=== PATIENT | female | born 1985 | race Caucasian/White ===

== ENCOUNTER 2017-06-08 03:00 | Inpatient (IN) | payer OTHER ==
[~2017-06-08] VITALS: Ht 165.1 cm; Wt 74.8 kg
--- NOTE | ~2017-06-08 | PN ---
Unit #: [id number] #: [id number] Patient: MARLIN FELIPE [id number] [facility] [address] [place] [address] [id number] MR#: [id number] NAME: MARLIN FELIPE. ROOM: P179 Age: 31 Sex: F Admission Date: 06/08/2017 : 1985 Attending Physician: Mellisa Lama M.D. Admitting Physician: Mellisa Lama M.D. Primary Care Physician: Primary Care Physician Evon GUTIERREZ NOTES DATE 06/10/2017 DISCUSSION Ms. Felipe is a 31-year-old white female who was seen today and chart was reviewed and case was discussed with the staff. She remains anxious, withdrawn and irritable and showing very negative insight into her situation, refusing to take responsibility for her presentation and her suicide attempt and just trying to mask and minimize her symptoms so she can get out of the hospital and does not appear to be very investing in treatment. MENTAL STATUS EXAMINATION Young white female who was casually dressed with fair personal hygiene, appears to be in no acute distress or discomfort. She was awake and alert on interaction with intact orientation. Her mood was anxious and depressed with congruent affect. Her speech was slow and restricted in content. She denies any suicidal or homicidal ideations. Her insight and judgement remains slightly impaired. TREATMENT PLAN The patient remains emotionally fragile at this time and has poor prognosis due to lack of insight into her situation and trying to actively mask and minimize her symptoms and we will encourage the patient to compliant with treatment recommendations and we will monitor her response and make further adjustments as needed. Dictated by... Shai Love/cordell TD: 06/10/2017 20:49 JOB #: [id number] Unit #: [id number] #: [id number] Patient: MARLIN FELIPE SOILA GUTIERREZ NOTES Page 1 of 1 X Mellisa Lama MD PROGRESS NOTE
--- NOTE | ~2017-06-08 | PA ---
Unit #: [id number] #: [id number] Patient: MARLIN RICO [id number] [facility] [address] [place] [address] [id number] I MR#: [id number] NAME: MARLIN RICO. ROOM: P179 Age: 31 Sex: F Admission Date: 06/08/2017 : 1985 Date of Assessment: Attending Physician: Mellisa Lama M.D. Admitting Physician: Mellisa Lama M.D. Primary Care Physician: Primary Care Physician No PSYCHIATRIC ASSESSMENT DATE OF SERVICE 06/08/2017. IDENTIFYING DATA Ms. Haywood is a 31-year-old white female, who is a resident of [place], [place], and was transferred to us from [facility] on a voluntary basis. CHIEF COMPLAINT "I've been depressed for a long time now." HISTORY OF PRESENT ILLNESS Ms. Haywood is a 31-year-old white female with history of mood disorder, who was self-referred to the hospital stating that she has been depressed for a long time and 2 days ago, she found out that her was cheating on her with another woman and she had a breakdown and she took about 8 Tylenol and she is tired of feeling this way and reports having thoughts of suicide via overdose, and reports that there is CPS involvement and she has three more weeks to get herself together so she can get her kids back. The patient reports that she and her were supposed to be working together to get jobs and get off the drugs, so they could regain custody of the children and she reports that she feels like she is the only one trying and she is tired of feeling like this and she feels like she is working hard and not getting anywhere and it is a constant struggle. The patient reports daily use of methamphetamine, 20 dollars worth via IV route and reports recent use of alcohol, half a pint of whiskey on 06/07/2017 and does report increasing depression, anxiety, irritability, restlessness, feelings of hopelessness and helplessness, and suicidal ideations and as such, a recommendation for inpatient level of care for safety and stabilization was made and the patient was stepped up to the inpatient unit. SUBSTANCE ABUSE HISTORY The patient reports extensive history of substance abuse and dependence including alcohol, cannabis, cocaine, opioids, and amphetamines, and currently, methamphetamine has been her drug of choice. PAST PSYCHIATRIC HISTORY The patient has not had any prior inpatient or outpatient psychiatric treatment. Review of the medical records indicate currently she is not active in any treatment program and is not seeing a psychiatrist and is not taking any psychotropic medications. Unit #: [id number] #: [id number] Patient: MARLIN RICO PAST MEDICAL HISTORY No acute or chronic medical illnesses. ALLERGIES No known medication allergies. CURRENT MEDICATIONS None. PERSONAL AND SOCIAL HISTORY A 31-year-old white female, who reports that she is and lives at home with her mother as she is from her and her children are in CPS custody. MENTAL STATUS EXAMINATION Young white female, who was casually dressed with fair personal hygiene, appears to be in no acute distress or discomfort. She was awake and alert on interaction with intact orientation to time, place, and person. Her mood was anxious and depressed with a congruent affect. Her speech was slow and restricted in content. Her thought processes were disorganized with some looseness of associations and flight of ideas and suicidal ideations. Her insight and judgment remain significantly impaired. DIAGNOSTIC IMPRESSION Psychiatric: Major depressive disorder, recurrent, moderate, without psychotic features; methamphetamine dependence, moderate; and alcohol dependence, moderate. Medical: None. Stressors: Mild psychosocial stressors. TREATMENT PLAN 1. The patient has presented with a history of substance abuse and mood disorder and has been decompensating and will need inpatient hospitalization for safety and stabilization. We will start her back on her home medications. We will adjust the medications and monitor response. 2. Supportive therapy was provided to the patient. 3. Safe, structured, and nourishing environment will be provided. ESTIMATED LENGTH OF STAY 4 to 5 days. ABILITY TO HELP SELF Limited. WILLINGNESS TO HELP SELF The patient appears to be willing to help self. STRENGTHS 1. Communicative. 2. Cooperative. PROBLEMS 1. Chronic dysphoric symptoms. 2. Chronic chemical dependency. 3. Poor social support system. DISCHARGE CRITERIA This will be contingent upon the patient's ability to go through detox without having any significant withdrawal symptoms as well as her ability Unit #: [id number] #: [id number] Patient: MARLIN RICO to stay safe to herself, particularly after discharge from the hospital. Dictated by... Shai Love/jose TD: 06/09/2017 15:47 JOB #: [id number] PSYCHIATRIC ASSESSMENT Page 1 of 1 X Mellisa Lama MD PSYCHIATRIC ASSESSMENT
--- NOTE | ~2017-06-08 | PN ---
Unit #: [id number] #: [id number] Patient: MARLIN FELIPE [id number] [facility] [address] [place] [address] [id number] MR#: [id number] NAME: MARLIN FELIPE. ROOM: P179 Age: 31 Sex: F Admission Date: 06/08/2017 : 1985 Attending Physician: Mellisa Lama M.D. Admitting Physician: Mellisa Lama M.D. Primary Care Physician: Primary Care Physician Evon CM PROGRESS NOTES DATE OF SERVICE: 06/09/2017 SUBJECTIVE Ms. Felipe is a 31-year-old white female, who was seen today and chart was reviewed. Case was discussed with the staff. She has been anxious, withdrawn, depressed, and rather seclusive to herself. It appears to be showing very poor insight into her situation and not showing good motivation towards treatment. Meanwhile, she has been taking medications and tolerating them fairly well. MENTAL STATUS EXAMINATION Young white female, who was casually dressed with fair personal hygiene, appears to be in no acute distress or discomfort. She was awake and alert on interaction with intact orientation. Her mood was anxious with a congruent affect. The patient denies any suicidal or homicidal ideations. Her insight and judgment remain slightly impaired. TREATMENT PLAN 1. We will continue on current medications. We will recommend initiating a trial of antidepressant therapy. 2. We will continue to follow up. Dictated by... Shai Love/jose TD: 06/10/2017 12:03 JOB #: [id number] [facility] PROGRESS NOTES Page 1 of 1 X Mellisa Lama MD PROGRESS NOTE
--- NOTE | ~2017-06-08 | PN ---
Unit #: [id number] #: [id number] Patient: MARLIN FELIPE [id number] [facility] [address] [place] [address] [id number] I MR#: [id number] NAME: MARLIN FELIPE. ROOM: P179 Age: 31 Sex: F Admission Date: 06/08/2017 : 1985 Attending Physician: Mellisa Lama M.D. Admitting Physician: Mellisa Lama M.D. Primary Care Physician: Primary Care Physician Evon CM PROGRESS NOTES DATE June 08, 2017 DISCUSSION Ms. Felipe is a 31-year-old white female, who was seen today and chart was reviewed and the case was discussed with the staff. She has been anxious, withdrawn, and rather seclusive to herself. Meanwhile, she has been cooperative with the treatment recommendations, and has been taking the medications and tolerating them fairly well with no reported side effects. MENTAL STATUS EXAMINATION Young white female, who was casually dressed with fair personal hygiene and appears to be in no acute distress or discomfort. The patient was awake and alert on interaction with intact orientation. Her mood was anxious with a congruent affect. The patient denies any suicidal or homicidal ideations. Her insight and judgment remain slightly impaired. TREATMENT PLAN 1. We will continue her on her current medications and treatment protocol, and will monitor her response to the medications, and make further adjustments as needed. 2. We will continue to followup. Dictated by... Shai Love/cass TD: 06/10/2017 09:38 JOB #: [id number] Unit #: [id number] #: [id number] Patient: MARLIN FELIPE [facility] PROGRESS NOTES Page 1 of 1 X Mellisa Lama MD X PROGRESS NOTE
--- NOTE | ~2017-06-08 | PN ---
Unit #: [id number] #: [id number] Patient: MARLIN FELIPE [id number] [facility] [address] [place] [address] [id number] I MR#: [id number] NAME: MARLIN FELIPE. ROOM: P179 Age: 31 Sex: F Admission Date: 06/08/2017 : 1985 Attending Physician: Mellisa Lama M.D. Admitting Physician: Mellisa Lama M.D. Primary Care Physician: Primary Care Physician Evon CM PROGRESS NOTES DATE 06/11/2017 DISCUSSION Ms. Felipe is a 31-year-old white female with mood disorder who was seen today and chart was reviewed and case was discussed with the staff. She has been anxious, withdrawn, depressed and rather seclusive to herself. Meanwhile, she has been cooperative with treatment recommendations and has been taking medications and tolerating them fairly well with no reported side effects. MENTAL STATUS EXAMINATION Young white female who was casually dressed with fair personal hygiene and appears to be in no acute distress or discomfort. She was awake and alert with intact orientation. Her mood was anxious with congruent affect. Her speech is slow and goal-directed. She denies any suicidal or homicidal ideations. Her insight and judgement remains slightly impaired. TREATMENT PLAN 1. Will continue on current treatment protocol. Will monitor her response to medications and make further adjustments as needed. 2. Will continue to follow up. Dictated by... Shai Love/amrai TD: 06/11/2017 15:07 JOB #: [id number] Unit #: [id number] #: [id number] Patient: MARLIN FELIPE PEAJULIAN PROGRESS NOTES Page 1 of 1 X Mellisa Lama MD X PROGRESS NOTE
--- NOTE | ~2017-06-08 | HP ---
Unit #: [id number] #: [id number] Patient: MARLIN RICO [id number] [place] [address] [id number] MR#: [id number] NAME: MARLIN RICO. ROOM: P179 Age: 31 Sex: F Admission Date: 06/08/2017 : 1985 Attending Physician: Mellisa Lama M.D. Admitting Physician: Mellisa Lama M.D. Primary Care Physician: Primary Care Physician No HISTORY AND PHYSICAL HISTORY OF PRESENT ILLNESS The patient is a 31-year-old female, who is admitted to [facility] on 06/08/2017 for suicidal ideation, methamphetamine, and alcohol abuse. PAST MEDICAL HISTORY The patient denies. PAST SURGICAL HISTORY The patient denies. SOCIAL HISTORY She is unemployed. She lives with her mother and children, smokes one pack of cigarettes daily, and has been using alcohol and methamphetamines on a daily basis recently. FAMILY MEDICAL HISTORY Noncontributory. ALLERGIES No known drug allergies. CURRENT MEDICATIONS The patient is not on any home medications. REVIEW OF SYSTEMS CONSTITUTIONAL: No fever or chills. HEENT: Denies any sore throat, ear pain or runny nose. CARDIOVASCULAR: Denies chest pain, irregular heart rhythm or palpitations. CHEST: Denies shortness of breath or cough. No hemoptysis. GASTROINTESTINAL: Denies nausea, vomiting, diarrhea or chronic constipation. ENDOCRINE: Denies history of increased thirst or urination. No recent significant weight loss or gain. GENITOURINARY: Denies dysuria, frequency, or hematuria. SKIN: Denies any rashes. HEMATOLOGIC: Denies history of increased bleeding or bruising. MUSCULOSKELETAL: Denies any hot, swollen joints. No generalized muscle pain. NEUROLOGIC: Denies problems with vision or speech. No frequent, severe headaches. No numbness, tingling or weakness in any extremities. Denies loss of bladder or bowel control. PHYSICAL EXAMINATION Unit #: [id number] #: [id number] Patient: MARLIN RICO GENERAL: She is awake, alert, and oriented and in no acute distress. VITAL SIGNS: Temperature 97.9, heart rate 112, respirations 16, and blood pressure 120/84. HEIGHT: 5 feet 5 inches. WEIGHT: 155 pounds. SKIN: Warm and dry without rash or lesion. HEENT: Normocephalic. TMs not viewed. Oral and nasal passages clear. Conjunctivae clear. PERRLA. EOMs intact. NECK: Supple without lymphadenopathy or thyromegaly. HEART: Regular rate and rhythm without murmur. LUNGS: Clear. ABDOMEN: Soft, nontender. : Not done. EXTREMITIES: No evidence of cyanosis, clubbing or edema. Moves all without focal deficit. NEUROLOGICAL: Grossly within normal limits. Cranial Nerves: II: Visual santos are intact. III, IV AND : Extraocular movements are intact. Pupils are equal, round and reactive to light. V: Facial sensation is grossly normal. VII: Facial movements and expression are normal. VIII: Auditory acuity grossly intact. IX, X: Uvula is midline. Phonation is normal. XI: Patient shrugs shoulders and turns head normally. XII: Tongue protrudes in the midline. Sensory and Motor Function: Sensory and motor sensation is grossly normal. Motor: moves all extremities well. Coordination: Gait is normal. Deep Tendon Reflexes: Intact. IMPRESSION 1. Psychiatric admission. 2. Alcohol and methamphetamine abuse. RECOMMENDATIONS Psychiatric, per psychiatrist. MEDICAL No contraindications to participating in facility's activities. MEDICAL PROGNOSIS Good. MEDICAL CONDITION Stable. Dictated by... Patti Ybarra/cass TD: 06/11/2017 12:00 JOB #: [id number] Unit #: [id number] #: [id number] Patient: MARLIN RICO HISTORY AND PHYSICAL Page 1 of 1 X JS WHITFIELD APRN HISTORY AND PHYSICAL
== END 2017-06-11 12:50 | DRG 885 ==
LOC: P1E 06:46
PROC: HZ2ZZZZ Detoxification Services for Substance Abuse Treatment (ICD-10-PCS; principal; 2017-06-08)
DX: F33.1 Major depressive disorder, recurrent, moderate (principal); F15.20 Other stimulant dependence, uncomplicated; R45.851 Suicidal ideations; F10.20 Alcohol dependence, uncomplicated; F17.210 Nicotine dependence, cigarettes, uncomplicated